=== PATIENT | male | born 1995 | race Two or more races ===

== ENCOUNTER 2017-10-30 16:17 | Emergency (ER) | payer MEDICAID ==
[~2017-10-30] VITALS: Ht 188 cm; Wt 110.2 kg
[2017-10-30 16:24] VITALS: Ht 188 cm; Wt 110.2 kg
[2017-10-30 17:04] LABS: microscopic required? NO
[2017-10-30 17:46] LABS: BASOPHIL % 0.4 % (0-2); PLATELET COUNT 196 x10^3mcL (130-400); RED CELL DISTRIBUTION WIDTH 12.7 % (11.5-14.5)
[2017-10-30 17:51] LABS: UA SPECIFIC GRAVITY <=1.005 (1.005-1.035); urine erythrocyte NEGATIVE (NEGATIVE)
[2017-10-30 17:53] LABS: CARBON DIOXIDE 30.6 mmol/L (21-32); CHLORIDE SERUM 102 mmol/L (98-107); CREATININE SERUM 1.2 mg/dL (0.7-1.3); GFR1 > 60 mL/min; GLUCOSE SERUM 94 mg/dL (74-106); POTASSIUM SERUM 3.8 mmol/L (3.5-5.1); SODIUM SERUM 141 mmol/L (136-145)
[2017-10-30 18:32] VITALS: BP 134/101
== END 2017-10-30 18:32 | disposition home or self-care (01) ==
LOC: ED 16:17
PROVIDERS: Emergency Medicine
DX: M54.9 Dorsalgia, unspecified (principal); I10 Essential (primary) hypertension; R01.1 Cardiac murmur, unspecified
CPT/HCPCS: J7030; Q0092